=== PATIENT | male | born 1950 | race Caucasian/White ===

== ENCOUNTER 2016-10-02 08:29 | Inpatient (IN) | payer BC, MEDICARE ==
[~2016-10-02] VITALS: Ht 172.7 cm; Wt 76.9 kg
[2016-10-02] VITALS (488 sets, daily range): BP systolic 107–143; BP diastolic 55–78; PULSE 58–78; TEMP 98.1–98.9; O2SAT 87–100
[2016-10-02] MEDS ORDERED: PRINIVIL20 MG PO (11:17)
[2016-10-02] MEDS ORDERED: MEVACOR 20M20 MG/TAB PO (11:17)
[2016-10-02] MEDS ORDERED: GLUCOPHAGE500 MG/TAB PO (11:19)
[2016-10-02] MEDS ORDERED: CELEXA 20MG20 MG/TAB PO (11:19)
[2016-10-02] MEDS ORDERED: LOVENOX 3030 MG/0.3 SQ (11:21)
[2016-10-02] MEDS ORDERED: TOPROL XL 50MG50 MG PO (11:22)
[2016-10-02] MEDS ORDERED: KETOROLAC30 MG/ML IJ (11:22)
[2016-10-02] MEDS ORDERED: ATIVAN 1MG T1 MG/TAB PO (11:23)
[2016-10-02] MEDS ORDERED: ALMACONE 360 M360 ML PO (11:24)
[2016-10-02] MEDS ORDERED: TRADJENTA5 MG PO (19:31)
[2016-10-03] VITALS (24 sets, daily range): BP systolic 91–119; BP diastolic 56–80; PULSE 59–68; TEMP 97.8–98.8; O2SAT 92–99
[2016-10-03 06:09] LABS: BASO % 0.2 % (0.0-2.0); EOS # 0.1 (0.0-0.7); EOS % 0.8 % (0-4.0); GRAN # 6.2 (1.4-6.5); GRAN % 74.8 % (42.2-75.2); HEMATOCRIT 44.6 % (42.0-52.0); HEMOGLOBIN 14.2 g/dl (13.5-18.0); LYMPH # 1.3 (1.2-3.4); LYMPH % 15.7 % (20.0-51.0); MEAN CELL VOLUME 89 fl (80.0-100.0); MEAN CORPUSCULAR HEMOGLOBIN 28 pg (27.0-31.0); MEAN CORPUSCULAR HGB CONC 32 g/dl (33.0-37.0); MEAN PLATELET VOLUME 10.1 fl (7.4-10.4); MONO # 0.7 (0.1-0.6); MONO % 8.1 % (1.7-9.3); PLATELET COUNT 204 K/mm3 (130-400); RED BLOOD COUNT 5.02 M/mm3 (4.20-5.60); REDCELL DISTRIBUTION WIDTH-CV 13.1 % (11.5-14.5); WHITE BLOOD COUNT 8.4 K/mm3 (4.8-10.8)
[2016-10-03 06:39] LABS: CALCIUM 9.6 mg/dL (8.4-10.2); CREATININE, serum 1.19 mg/dL (0.66-1.25); POTASSIUM 4.9 mmol/L (3.4-5.0)
[2016-10-03 08:02] LABS: TROPONIN-I 11.1 ng/mL (0.000-0.034)
[2016-10-03] MEDS ORDERED: EFFIENT5 MG PO (10:46)
[2016-10-03] MEDS ORDERED: LIPITOR 40MG TA40 MG PO (10:46)
[2016-10-03] MEDS ORDERED: ASPIRIN E.C. 8181 MG PO (10:47)
== END 2016-10-03 11:54 | disposition home or self-care (01) | DRG 247 ==
LOC: IMCU 08:29
PROVIDERS: Internal Medicine Cardiovascular Disease
PROC: 027135Z Dilation of Coronary Artery, Two Arteries with Two Drug-eluting Intraluminal Devices, Percutaneous Approach (ICD-10-PCS; principal; 2016-10-02)
PROC: B2111ZZ Fluoroscopy of Multiple Coronary Arteries using Low Osmolar Contrast (ICD-10-PCS; 2016-10-02)
DX: I21.4 Non-ST elevation (NSTEMI) myocardial infarction (principal); N17.9 Acute kidney failure, unspecified; I25.10 Atherosclerotic heart disease of native coronary artery without angina pectoris; I10 Essential (primary) hypertension; E11.9 Type 2 diabetes mellitus without complications
CPT/HCPCS: 99223-AI; 99239; C1725; C1760; C1769; C1874; C1887; C9600; J0583; J1815; J2250; J3010; Q9967